=== PATIENT | male | born 1965 | race Caucasian/White ===

== ENCOUNTER → 2023-09-29 11:03 | Outpatient (REF) | payer OTHER, SELFPAY | LOC: HWRCS 11:03 | PROVIDERS: ATTENDING PHYSICIAN Internal Medicine Cardiovascular Disease; FAMILY PHYSICIAN Internal Medicine | DX: I25.10 Atherosclerotic heart disease of native coronary artery without angina pectoris (principal); I34.0 Nonrheumatic mitral (valve) insufficiency; R06.09 Other forms of dyspnea | CPT/HCPCS: 93306 ==

== ENCOUNTER → 2023-10-10 13:51 | Outpatient (REF) | payer OTHER, SELFPAY | LOC: RCS 13:51 | PROVIDERS: ATTENDING PHYSICIAN Internal Medicine Cardiovascular Disease; FAMILY PHYSICIAN Internal Medicine | DX: I25.10 Atherosclerotic heart disease of native coronary artery without angina pectoris (principal); R06.09 Other forms of dyspnea | CPT/HCPCS: 93017; 93350 ==